=== PATIENT | female | born 1990 | race Caucasian/White ===

== ENCOUNTER 2020-01-11 06:22 | Inpatient (IN) ==
[2020-01-11] MEDS ORDERED: ANCEF 1 GRAM IV PREMIX* 1 G/50 ML BAG IV ONE (06:33)
[2020-01-11] MEDS ORDERED: LR 1000 ML IV 1,000 ML IV ONE ×2 (06:34→07:54)
[2020-01-11] MEDS ORDERED: D5 1/2 NS 1000 ML 1,000 ML IV SCH (06:41)
[2020-01-11] MEDS ORDERED: ANCEF VIAL 1 GRAM IVP ONE (06:41)
[2020-01-11] MEDS ORDERED: DILAUDID INJ ONE (07:19)
[2020-01-11] MEDS ORDERED: DILAUDID INJ IVP PRN (09:04)
[2020-01-11] MEDS ORDERED: REGLAN INJ 10 MG VIAL IVP PRN ×2 (09:04→10:18)
[2020-01-11] MEDS ORDERED: BENADRYL INJ 50 MG VIAL IVP PRN ×2 (09:04→10:18)
[2020-01-11] MEDS ORDERED: PHENERGAN INJ 25 MG IM PRN (09:04)
[2020-01-11] MEDS ORDERED: ZOFRAN INJ 4 MG VIAL IVP PRN ×2 (09:04→10:18)
[2020-01-11] MEDS ORDERED: D5 1/2 NS 1L W PITOCIN 20 UNITS/L 20 UNITS/1,000 ML BAG IV ONE (09:06)
[2020-01-11] MEDS ORDERED: MYLICON TAB 80 MG CHEW PO PRN (10:18)
[2020-01-11] MEDS ORDERED: ADACEL or BOOSTRIX TDaP VACCINE IM ONE (10:18)
[2020-01-11] MEDS ORDERED: NARCAN INJ IVP PRN (10:18)
[2020-01-11] MEDS ORDERED: D5 1/2 NS 1000 ML 1,000 ML with PITOCIN 20 UNITS IV SCH ×2 (10:18)
[2020-01-11] MEDS ORDERED: PERCOCET TAB 5/325 MG PO PRN (10:18)
[2020-01-11] MEDS ORDERED: VERSED ONE (10:35)
[2020-01-11] MEDS ORDERED: EPHEDRINE SULFATE INJ ONE (10:35)
[2020-01-11] MEDS: TORADOL 30 MG VIAL IVP PRN ×2 (10:49→18:06)
[2020-01-11] MEDS: FERROUS GLUCONATE PO SCH (16:27)
[2020-01-12] MEDS: TORADOL 30 MG VIAL IVP PRN (01:35)
[2020-01-12 05:45] LABS: HEMATOCRIT 21.9 % (36.0-47.0)
[2020-01-12 05:50] LABS: HEMOGLOBIN 7.7 g/dL (12.0-16.0)
[2020-01-12] MEDS: FERROUS GLUCONATE PO SCH ×2 (06:28→16:45)
[2020-01-12] MEDS ORDERED: ADACEL or BOOSTRIX TDaP VACCINE IM ONE (08:21)
[2020-01-12] MEDS: COLACE CAP 100 MG PO SCH ×2 (08:29→21:16)
[2020-01-12] MEDS: PRENATAL PLUS PO SCH (08:29)
[2020-01-12] MEDS: MOTRIN TAB 800 MG PO PRN ×2 (08:29→18:30)
[2020-01-12] MEDS: PERCOCET TAB 5/325 MG PO PRN ×3 (11:38→21:16)
[2020-01-12] MEDS: BACTROBAN TOPICAL OINT TOP SCH ×2 (14:24→21:16)
[2020-01-13] MEDS: PERCOCET TAB 5/325 MG PO PRN ×2 (02:22→07:13)
[2020-01-13] MEDS: BACTROBAN TOPICAL OINT TOP SCH (05:58)
[2020-01-13] MEDS: FERROUS GLUCONATE PO SCH (06:01)
[2020-01-13] MEDS: PRENATAL PLUS PO SCH (09:11)
[2020-01-13] MEDS: COLACE CAP 100 MG PO SCH (09:11)
[2020-01-13 12:41] VITALS: BP 132/74
== END 2020-01-13 01:45 | disposition home or self-care (01) | DRG 788 ==
LOC: LD 06:22 → MED/SURG 10:10
PROVIDERS: ADMIT Specialist; ATTEND Specialist
DX: Z3A.38 38 weeks gestation of pregnancy; Z37.0 Single live birth; O99.013 Anemia complicating pregnancy, third trimester; D50.8 Other iron deficiency anemias; O13.3 Gestational [pregnancy-induced] hypertension without significant proteinuria, third trimester; N85.8 Other specified noninflammatory disorders of uterus; Z01.818 Encounter for other preprocedural examination; Z23 Encounter for immunization

== ENCOUNTER 2023-10-09 06:23 | Inpatient (IN) ==
[2023-10-09] MEDS ORDERED: ANCEF VIAL 1 GRAM IVP ONE (06:43)
[2023-10-09] MEDS ORDERED: D5 1/2 NS 1,000 ML 1,000 ML IV SCH (06:43)
[2023-10-09] MEDS ORDERED: XYLOCAINE 1 % (PLAIN) ONE (06:46)
[2023-10-09] MEDS ORDERED: D5 1/2 NS 1,000 ML 1,000 ML IV ONE ×2 (06:46→06:49)
[2023-10-09] MEDS ORDERED: LR 1,000 ML IV 1,000 ML IV ONE ×2 (06:47→06:49)
[2023-10-09] MEDS ORDERED: NS 100 ML IV 100 ML ONE (06:48)
[2023-10-09] MEDS ORDERED: NOZIN NASAL SANITIZER TP ONE (06:48)
[2023-10-09] MEDS ORDERED: ANCEF VIAL 1 GRAM ONE (06:48)
[2023-10-09] MEDS ORDERED: DIPRIVAN VIAL 20 ML ONE ×2 (06:49→09:02)
[2023-10-09] MEDS ORDERED: EPHEDRINE SULFATE INJ ONE (06:49)
[2023-10-09] MEDS ORDERED: REGLAN INJ 10 MG VIAL ONE (06:50)
[2023-10-09] MEDS ORDERED: PEPCID 20 MG VIAL ONE (06:50)
[2023-10-09] MEDS ORDERED: ZOFRAN INJ 4 MG VIAL ONE (06:50)
[2023-10-09] MEDS ORDERED: PITOCIN ONE (06:50)
[2023-10-09] MEDS ORDERED: DILAUDID INJ ONE (06:54)
[2023-10-09] MEDS ORDERED: MARCAINE SPINAL ONE (06:54)
[2023-10-09] MEDS ORDERED: NEO-SYNEPHRINE INJ ONE (07:10)
[2023-10-09] MEDS ORDERED: VERSED ONE (08:28)
[2023-10-09] MEDS ORDERED: NARCAN INJ ONE (08:59)
[2023-10-09] MEDS ORDERED: ZOFRAN INJ 4 MG VIAL IVP PRN ×2 (09:21→10:37)
[2023-10-09] MEDS ORDERED: BENADRYL INJ 50 MG VIAL IVP PRN ×2 (09:21→10:37)
[2023-10-09] MEDS ORDERED: BARHEMSYS INJ IVP PRN (09:21)
[2023-10-09] MEDS ORDERED: REGLAN INJ 10 MG VIAL IVP PRN ×2 (09:21→10:37)
[2023-10-09] MEDS ORDERED: NUBAIN INJ 200 MG VIAL MULTIDOSE ONE (09:54)
[2023-10-09] MEDS ORDERED: PERCOCET TAB 5/325 MG PO PRN ×2 (10:37→10:50)
[2023-10-09] MEDS ORDERED: D5 1/2 NS 1,000 ML 1,000 ML with PITOCIN 20 UNITS IV SCH ×2 (10:37)
[2023-10-09] MEDS ORDERED: NARCAN INJ IVP PRN (10:37)
[2023-10-09] MEDS ORDERED: ADACEL or BOOSTRIX TDaP VACCINE IM ONE (10:37)
[2023-10-09] MEDS: TORADOL 30 MG VIAL IVP PRN ×2 (10:54→19:52)
[2023-10-09] MEDS ORDERED: NS IRRIGATION* 500 ML IR ONE (14:21)
[2023-10-09] MEDS: MYLICON TAB 80 MG CHEW PO PRN (20:37)
[2023-10-10] MEDS: TORADOL 30 MG VIAL IVP PRN (01:38)
[2023-10-10] MEDS: MYLICON TAB 80 MG CHEW PO PRN ×2 (05:15→21:30)
[2023-10-10 05:19] LABS: HEMATOCRIT 29.6 % (36.0-47.0); HEMOGLOBIN 9.8 g/dL (12.0-16.0)
[2023-10-10] MEDS ORDERED: MOTRIN TAB 800 MG PO PRN (08:39)
[2023-10-10] MEDS ORDERED: PERCOCET TAB 5/325 MG PO PRN (08:39)
[2023-10-10] MEDS: PRENATAL PLUS PO SCH (09:01)
[2023-10-10] MEDS: PERCOCET TAB 5/325 MG PO PRN ×2 (12:44→18:50)
[2023-10-10] MEDS: BACTROBAN TOPICAL OINT TOP SCH ×2 (14:00→21:30)
[2023-10-10] MEDS: MOTRIN TAB 800 MG PO SCH ×2 (14:25→21:29)
[2023-10-10] MEDS ORDERED: COLACE CAP 100 MG PO SCH (21:00)
[2023-10-11] MEDS: PERCOCET TAB 5/325 MG PO PRN ×2 (01:40→08:41)
[2023-10-11] MEDS: BACTROBAN TOPICAL OINT TOP SCH (06:04)
[2023-10-11] MEDS: MOTRIN TAB 800 MG PO SCH (06:04)
[2023-10-11] MEDS: MYLICON TAB 80 MG CHEW PO PRN (06:04)
[2023-10-11] MEDS: PRENATAL PLUS PO SCH (08:13)
[2023-10-11 08:51] VITALS: O2SAT 97
[2023-10-11 12:12] VITALS: BP 120/70; PULSE 88; RESP 20; TEMP 98.2
== END 2023-10-11 14:15 | disposition home or self-care (01) | DRG 785 ==
LOC: LD 06:23 → MED/SURG 10:01
PROVIDERS: ADMIT Specialist; ATTEND Specialist